=== PATIENT | female | born 1985 | race Caucasian/White ===

== ENCOUNTER 2016-08-04 13:37 | Emergency (ER) | payer OTHER ==
[2016-08-04 13:54] VITALS: TEMP 98; BMI 27.0
[2016-08-04] MEDS ORDERED: PANTOPRAZOLE SODIUM 40 MG in SODIUM CHLORIDE 100 ML IVPB ONE (15:14)
[2016-08-04] MEDS ORDERED: SODIUM CHLORIDE 0.9% 1000 ML INFUS.BAG IV ONE (15:14)
[2016-08-04] MEDS ORDERED: FAMOTIDINE 20 MG/50 ML IVPB 50 ML IVPB ONE ×2 (15:14→15:48)
[2016-08-04] MEDS ORDERED: ONDANSETRON 4 MG/2 ML VIAL IVPUSH ONE (15:14)
[2016-08-04] MEDS ORDERED: MAG HYDROX/AL HYDROX/SIMETH 30 ML UNIT-DOSE CUP PO ONE (15:15)
--- NOTE | 2016-08-04 15:33 | PDOC ---
History of Present Illness - General Chief Complaint: Pain, Acute Stated Complaint: VOMITING Time Seen by Provider: 08/04/16 14:32 - History of Present Illness Initial Comments: 08/04/16 15:17 CHIEF COMPLAINT: nausea/vomiting x 2 days HISTORY OF PRESENT ILLNESS: 31 yo F with no PMH presents to ED with nausea and vomiting since yesterday with epigastric pain accompanied by 3-4 episodes of diarrhea yesterday. Denies fever, chills, headache. No recent travel or sick contacts. PAST MEDICAL HISTORY: Denies past medical history FAMILY HISTORY: Denies SOCIAL HISTORY:Denies tobacco, alcohol, illicit drug use. SURGICAL HISTORY: Denies ALLERGIES: No known drug allergies REVIEW OF SYSTEMS General/Constitutional: Denies fever or chills. Denies weakness, weight change. HEENT: Denies change in vision. Denies ear pain or discharge. Denies sore throat. Cardiovascular: Denies chest pain or shortness of breath. Respiratory: Denies cough, wheezing, or hemoptysis. Gastrointestinal: "Like 10 episodes of vomiting since yesterday, 2-3 episodes of diarrhea." Denies rectal bleeding. Genitourinary: Denies dysuria, frequency, or change in urination. Musculoskeletal: Denies joint or muscle swelling or pain. Denies neck or back pain. PHYSICAL EXAM General Appearance: Well-appearing, appropriately dressed. No apparent distres. HEENT: EOMI, PERRLA. No conjunctival pallor. No photophobia, scleral icterus. Respiratory/Chest: Lungs CTAB. Cardiovascular: RRR. S1, S2. Gastrointestinal/Abdominal: Epigastric tenderness. No tenderness to McBurney's point. Normal bowel sounds. Abdomen soft, non-distended. No tenderness or rebound tenderness. No organomegaly, pulsatile mass, guarding, hernia, hepatomegaly, splenomegaly. Musculoskeletal/Extremities: Normal inspection. FROM of all extremities, normal capillary refill. Pelvis Stable. No CVA tenderness. No tenderness to extremities, pedal edema, swelling, erythema or deformity. Integumentary: Appropriate color, dry, warm. No cyanosis, erythema, jaundice or rash Neurologic: technician test systems II-XII intact. Fully oriented, alert. Appropriate mood/affect. Motor strength 5/5. No appreciable EOM palsy, facial droop or sensory deficit. Past History - Past Medical History Allergies/Adverse Reactions: Allergies Allergy/AdvReac Type Severity Reaction Status Date / Time No Known Allergies Allergy Verified 08/04/16 13:51 Home Medications: Ambulatory Orders Ondansetron [Zofran *Odt*] 8 mg SL TID PRN #21 od.tablet 08/04/16 Pantoprazole Sodium [Protonix] 40 mg PO DAILY #14 tablet. 08/04/16 Other medical history: DENIES. - Surgical History Appendectomy: Yes - Immunization History Immunization Up to Date: Yes - Psycho/Social/Smoking Cessation Hx Anxiety: No Suicidal Ideation: No Smoking History: Never smoked Have you smoked in the past 12 months: No Hx Alcohol Use: No Drug/Substance Use Hx: No Substance Use Type: None *Physical Exam - Vital Signs Last Vital Signs Temp Pulse Resp BP Pulse Ox 98 F 89 16 113/72 98 08/04/16 13:51 08/04/16 13:51 08/04/16 13:51 08/04/16 13:51 08/04/16 13:51 Medical Decision Making - Medical Decision Making 08/04/16 15:41 31 yo F with no PMH presents to ED with nausea and vomiting since yesterday with epigastric pain accompanied by 3-4 episodes of diarrhea yesterday. -IVF, Zofran, Protonix, Pepcid, Maalox Will reassess. *DC/Admit/Observation/Transfer Diagnosis at time of Disposition: Gastroenteritis - Discharge Dispostion Disposition: HOME Condition at time of disposition: Stable Admit: No - Prescriptions Prescriptions: Pantoprazole Sodium [Protonix] 40 mg PO DAILY #14 tablet. Ondansetron [Zofran *Odt*] 8 mg SL TID PRN #21 od.tablet PRN Reason: Nausea And/Or Vomiting - Referrals Referrals: Tammy Rae MD [Primary Care Provider] - - Patient Instructions Printed Discharge Instructions: DI for Vomiting -- Adult, DI for Viral Gastroenteritis -- Adult, DI for Diarrhea and Traveler's Diarrhea -- Adult Additional Instructions: As discussed, please take your medications as prescribed and follow up with Dr. Rae this week. If you experience any change in your abdominal pain, increased vomiting or diarrhea, fever, chills, or any new or worsening symptoms, please return to the ER.
[2016-08-04] MEDS ORDERED: PANTOPRAZOLE SODIUM 100 ML IVPB ONE (15:47)
[2016-08-04] MEDS ORDERED: MAG HYDROX/AL HYDROX/SIMETH 30 ML UNIT-DOSE CUP ONE (15:47)
[2016-08-04] MEDS ORDERED: ONDANSETRON 4 MG/2 ML VIAL ONE (15:48)
[2016-08-04 17:05] VITALS: BP 110/70; PULSE 70
== END 2016-08-04 17:04 | disposition home or self-care (01) ==
LOC: JER 13:37
PROC: 3E033GC Introduction of Other Therapeutic Substance into Peripheral Vein, Percutaneous Approach (ICD-10-PCS; principal; 2016-08-04)
PROC: 3E033GC Introduction of Other Therapeutic Substance into Peripheral Vein, Percutaneous Approach (ICD-10-PCS; 2016-08-04)
PROC: 3E033GC Introduction of Other Therapeutic Substance into Peripheral Vein, Percutaneous Approach (ICD-10-PCS; 2016-08-04)
DX: K52.9 Noninfective gastroenteritis and colitis, unspecified (principal)
CPT/HCPCS: 96365; 96368; 96375; 99283-25

== ENCOUNTER 2016-08-20 10:38 | Emergency (ER) | payer OTHER ==
[2016-08-20 10:42] VITALS: BMI 27.8
--- NOTE | 2016-08-20 12:41 | PDOC ---
History of Present Illness - General History Source: Patient Exam Limitations: No Limitations - History of Present Illness Initial Comments: 08/20/16 12:41 The patient is a 31-year-old woman with no past medical history who presents to the emergency department via walk-in for further evaluation of abdominal pain since yesterday. No trauma. No strenuous activity. She states that she experiences sharp mid-epigastric abdominal pain that radiates to her left upper quadrant, constant in nature with a rated 8/10 in severity since yesterday. She notes associated symptoms of nausea and loose watery stools (reportedly 8-10 episodes per day/ no diarrhea today). No vomiting, blood per rectum. She admits she was experiencing similar symptoms approximately 2-3 weeks ago, barre her trip to [place]. She was evaluated by her PMD, Dr. Tammy Rae. She has a follow- up appointment with a property insurance agent on 09/04/2016. She is currently on her menses. No other complaints. She denies fever, chills, diaphoresis, generalized weakness. She denies chest pain, shortness of breath, cough She denies vomiting, dysuria, hematuria, urinary frequency and urgency, flank pain, vaginal discharge/vaginal bleeding Allergies: No Known Drug Allergies Past Surgical History: Appendectomy Social History: No tobacco, EtOH and recreational drug use Primary Care Physician: Dr. Tammy Rae. <Cecilia Lux - Last Filed: 08/20/16 16:52> - General History Source: Patient Exam Limitations: No Limitations <Princess Zabala - Last Filed: 08/21/16 08:39> - General Chief Complaint: Pain Stated Complaint: ABD PAIN Time Seen by Provider: 08/20/16 12:24 Past History <Cecilia Lux - Last Filed: 08/20/16 16:52> - Surgical History Appendectomy: Yes - Immunization History Immunization Up to Date: Yes - Psycho/Social/Smoking Cessation Hx Anxiety: No Suicidal Ideation: No Smoking History: Never smoked Have you smoked in the past 12 months: No Hx Alcohol Use: No Drug/Substance Use Hx: No Substance Use Type: None <Princess Zabala - Last Filed: 08/21/16 08:39> - Past Medical History Allergies/Adverse Reactions: Allergies Allergy/AdvReac Type Severity Reaction Status Date / Time No Known Allergies Allergy Verified 08/20/16 10:42 Home Medications: Ambulatory Orders Dicyclomine HCl [Bentyl -] 10 mg PO TID PRN #28 capsule 08/20/16 Ranitidine HCl [Zantac] 150 mg PO DAILY 30 Days 08/20/16 Ranitidine [Zantac -] 150 mg PO DAILY #30 tablet 08/20/16 Nitrofurantoin Monohyd/M-Cryst [Macrobid -] 100 mg PO BID #14 capsule 08/21/16 Review of Systems - Review of Systems Able to Perform ROS?: Yes Comments:: 08/20/16 12:42 GENERAL/CONSTITUTIONAL: No: fever, chills, weakness, loss of appetite. HEAD, EYES, EARS, NOSE AND THROAT: No: change in vision, ear pain, discharge, sore throat, throat swelling. CARDIOVASCULAR: No: chest pain, lightheadedness, palpitations, syncope RESPIRATORY: No: cough, shortness of breath, wheezing, hemoptysis, stridor. GASTROINTESTINAL: Yes: Abdominal Pain. Nausea. Diarrhea. No: vomiting, abdominal cramping, rectal bleeding, constipation. GENITOURINARY: No: dysuria, hematuria, frequency, urgency, flank pain. MUSCULOSKELET AL: No: back pain, neck pain, joint pain, muscle swelling or pain SKIN AND BREASTS: No: lesions, pallor, rash or easy bruising. NEUROLOGIC: No: headache, vertigo, paresthesias, weakness ENDOCRINE: No: unexplained weight gain or loss HEMATOLOGIC/LYMPHATIC: No: anemia, easy bleeding, swelling nodes <Cecilia Lux - Last Filed: 08/20/16 16:52> *Physical Exam - Vital Signs Last Vital Signs Temp Pulse Resp BP Pulse Ox 98.0 F 80 20 123/78 100 08/20/16 10:39 08/20/16 10:39 08/20/16 10:39 08/20/16 10:39 08/20/16 10:39 - Physical Exam Comments: 08/20/16 12:42 GENERAL: Awake. Alert. The patient is in no acute distress. HEAD: Normal with no signs of trauma. EYES: PERRLA, EOMI, sclera anicteric, conjunctiva clear. ENT: Ears normal, nares patent, oropharynx clear without exudates. Moist mucous membranes. NECK: Normal range of motion, supple without lymphadenopathy, JVD, or masses. LUNGS: Breath sounds equal, clear to auscultation bilaterally. No wheezes, and no crackles. HEART:Regular rate and rhythm, normal S1 and S2 without murmur, rub or gallop. ABDOMEN: Soft, there is some left upper quadrant tenderness to palpation. Normoactive bowel sounds. No guarding, no rebound. EXTREMITIES: Normal range of motion, no edema. No clubbing or cyanosis. No erythema, or tenderness. NEUROLOGICAL: Cranial nerves II through XII grossly intact. Normal speech. No focal neurological deficits. MUSCULOSKELETAL: Back non-tender to palpation, no CVA tenderness SKIN: Warm, Dry, normal turgor, no rashes or lesions noted. <Cecilia Lux - Last Filed: 08/20/16 16:52> - Vital Signs Last Vital Signs Temp Pulse Resp BP Pulse Ox 98.0 F 80 20 123/78 100 08/20/16 10:39 08/20/16 10:39 08/20/16 10:39 08/20/16 10:39 08/20/16 10:39 <Princess Zabala - Last Filed: 08/21/16 08:39> ED Treatment Course - LABORATORY CBC & Chemistry Diagram: 08/20/16 13:30 08/20/16 13:30 - RADIOLOGY Radiograph Interpretation: 08/20/16 16:52 EXAM: CT/ABDOMEN PELVIS CT WITH CONTR HISTORY PROVIDED Interpreted by Dr. Jamari Blank IMPRESSION: Sequential axial images were obtained from the domes of the diaphragms through the symphysis pubis following the administration of both oral and intravenous contrast material. The lung bases are clear. The liver, spleen, pancreas, adrenal glands and kidneys demonstrate no significant abnormalities. The gallbladder is clear. There is no evidence of pneumoperitoneum, bowel obstruction or intra-abdominal abscess. There is no CT evidence of acute appendicitis, colitis or diverticulitis. There are prominent mesenteric lymph nodes within the right and left mid to lower quadrants. The possibility of mesenteric adenitis cannot be excluded. Clinical correlation is advised. Examination of the pelvis demonstrates no evidence of pelvic masses, fluid collections or lymphadenopathy. There is no evidence of acute bony abnormalities. <Cecilia Lux - Last Filed: 08/20/16 16:52> - LABORATORY CBC & Chemistry Diagram: 08/20/16 13:30 08/20/16 13:30 <Princess Zabala - Last Filed: 08/21/16 08:39> Medical Decision Making - Medical Decision Making 08/20/16 12:40 A portion of this note was documented by scribe services under my direction. I have reviewed the details of the note, within reason, and agree with the documentation with the following case summary and management plan written by me. Nursing documentation reviewed and incorporated into medical decision making 08/20/16 16:58 THis is a 31 yo F presenting to the ER with 2 weeks of diarrhea and now abdominal pain No fevers or chills Notes abdominal pain, particularly with eating Pt recently travelled but had these symptoms PRIOR to travelling On examination Epigastric tenderness and LLQ tenderness to palpation Will do Labs IVF CT Will re assess CT demonstrates NO appendicitis or diverticulitis Mesenteric adenitis Will discharge to home Follow up with PMD 08/20/16 17:07 Laboratory Tests 08/20/16 08/20/16 08/20/16 13:30 13:30 13:30 WBC 9.0 Hgb 12.9 Hct 38.6 Plt Count 337 Neutrophils % 61.5 Lymphocytes % 29.8 Sodium 142 Potassium 3.8 Chloride 104 Carbon Dioxide 25 Anion Gap 13 BUN 10 Creatinine 0.6 Random Glucose 74 D Total Amylase 71 Lipase 270 Serum , Qual Negative Urine Blood 3+ H Urine Nitrite Positive Ur Leukocyte Esterase 1+ H clinical impression: diarrhea, mesenteric adenitis possible UTI, micro unavailable) <Princess Zabala - Last Filed: 08/21/16 08:39> *DC/Admit/Observation/Transfer - Attestations Scribe Attestion: 08/20/16 12:42 Documentation prepared by Cecilia Lux, acting as medical billing manager for Princess Zabala MD. <Cecilia Lux - Last Filed: 08/20/16 16:52> - Discharge Dispostion Admit: No <Princess Zabala - Last Filed: 08/21/16 08:39> Diagnosis at time of Disposition: Mesenteric adenitis - Discharge Dispostion Disposition: HOME Condition at time of disposition: Stable - Prescriptions Prescriptions: Dicyclomine HCl [Bentyl -] 10 mg PO TID PRN #28 capsule PRN Reason: abdominal pain Nitrofurantoin Monohyd/M-Cryst [Macrobid -] 100 mg PO BID #14 capsule Ranitidine HCl [Zantac] 150 mg PO DAILY 30 Days Ranitidine [Zantac -] 150 mg PO DAILY #30 tablet - Referrals Referrals: Tammy Rae MD [Primary Care Provider] - - Patient Instructions Printed Discharge Instructions: DI for Mesenteric Adenitis-Adult, Diarrhea Additional Instructions: Thank you for coming in to the ER Please take medications as prescribed Please follow up with your Primary Care Physician Please return to the ER for any other concerns or complaints Please review all results - Post Discharge Activity Work/School Note: Back to Work
[2016-08-20] MEDS ORDERED: PANTOPRAZOLE SODIUM 40 MG in SODIUM CHLORIDE 100 ML IVPB ONE (12:43)
[2016-08-20] MEDS ORDERED: DICYCLOMINE HCL 10 MG CAPSULE PO ONE (13:00)
[2016-08-20] MEDS ORDERED: DICYCLOMINE HCL 10 MG CAPSULE ONE (13:32)
[2016-08-20] MEDS ORDERED: PANTOPRAZOLE SODIUM 100 ML IVPB ONE (13:32)
[2016-08-20 13:46] LABS: BASOPHIL 0.4 % (0-2.0); EOSINOPHIL 2.4 % (0-4.5); MCH 29.9 pg (25.7-33.7); MCHC 33.5 g/dl (32.0-36.0); MEAN CELL VOLUME 89.3 fl (80-96); NEUTROPHILS 61.5 % (42.8-82.8); PLATELET COUNT 337 K/MM3 (134-434); RDW 13.1 % (11.6-15.6)
[2016-08-20 14:02] LABS: ALBUMIN 4.1 g/dl (3.4-5.0); AMYLASE 71 U/L (25-115); ANION GAP 13 (8-16); BILIRUBIN,TOTAL 0.2 mg/dL (0.2-1.0); CALCIUM 8.5 mg/dL (8.5-10.1); CO2 25 mmol/L (21-32); CREATININE 0.6 mg/dL (0.55-1.02); GLUCOSE,RANDOM 74 mg/dL (74-106); SGOT/AST 29 U/L (15-37); SGPT/ALT 44 U/L (12-78); TOT PROT 8.2 g/dl (6.4-8.2)
[2016-08-20 14:03] LABS: ALK PHOS 108 U/L (45-117)
[2016-08-20 15:17] LABS: URINE APPEARANCE CLEAR; URINE BILIRUBIN NEGATIVE (NEGATIVE); URINE COLOR LTYELLOW; URINE GLUCOSE (UA) NEGATIVE (NEGATIVE)
[2016-08-20 15:18] LABS: URINE BLOOD 3+ (NEGATIVE); URINE KETONE NEGATIVE (NEGATIVE); URINE LEUK ESTERASE 1+ (NEGATIVE); URINE NITRITE POSITIVE (NEGATIVE); URINE PROTEIN NEGATIVE (NEGATIVE); URINE UROBILINOGEN NORMAL E.U./dl (0.2-1.0)
[2016-08-20 15:22] LABS: URINE MUCUS RARE; URINE RBC 17/HPF /hpf (0-3); URINE WBC 16/HPF /hpf (3-5)
[2016-08-20 18:21] VITALS: BP 126/75; PULSE 79; TEMP 98
== END 2016-08-20 18:21 | disposition home or self-care (01) ==
LOC: JER 10:38
PROC: 3E033GC Introduction of Other Therapeutic Substance into Peripheral Vein, Percutaneous Approach (ICD-10-PCS; principal; 2016-08-20)
DX: I88.0 Nonspecific mesenteric lymphadenitis (principal)
CPT/HCPCS: 36415; 74177-TC; 80053; 81003; 81015; 82150; 83690; 84703; 85025; 87086; 87186; 96365; 99283-25; Q9967

== ENCOUNTER 2017-06-11 01:23 | Emergency (ER) | payer OTHER ==
--- NOTE | 2017-06-11 01:47 | PDOC ---
History of Present Illness - General Chief Complaint: Vaginal Bleeding Stated Complaint: VAGINAL DISCHARGE/9 WKS PREG Time Seen by Provider: 06/11/17 01:42 History Source: Patient - History of Present Illness Initial Comments: 06/11/17 02:27 32 year old [id number] with vaginal spotting since last night.denies NVD, abdominal pain, fever/ chills. LMP 03/2018 Past History - Past Medical History Allergies/Adverse Reactions: Allergies Allergy/AdvReac Type Severity Reaction Status Date / Time No Known Allergies Allergy Verified 08/20/16 10:42 Home Medications: Ambulatory Orders Vit 93/Iron Fum/Folic [ Formula Tablet] 1 each PO DAILY - Surgical History Appendectomy: Yes - Immunization History Immunization Up to Date: Yes - Suicide/Smoking/Psychosocial Hx Smoking History: Never smoked Have you smoked in the past 12 months: No Hx Alcohol Use: No Drug/Substance Use Hx: No Substance Use Type: None Review of Systems - Review of Systems Able to Perform ROS?: Yes ED Treatment Course - LABORATORY CBC & Chemistry Diagram: 06/11/17 01:54 - RADIOLOGY Radiology Studies Ordered: Category Date Time Status TRANSVAGINAL US PREG [US] Stat Ultrasound 06/11/17 01:45 Ordered Radiograph Interpretation: 06/11/17 03:11 uterus is retroverted. there is sungle live IUP with estimated gestational age of 8 weeks and 20 days. there is small FHT 165bpm 06/11/17 03:16 Progress Note - Progress Note Progress Note: vaginal spotting in CBC beta HCG UA *DC/Admit/Observation/Transfer Diagnosis at time of Disposition: Vaginal bleeding affecting early - Discharge Dispostion Disposition: HOME - Referrals Referrals: Tammy Rae MD [Primary Care Provider] - - Patient Instructions Printed Discharge Instructions: DI for Vaginal Bleeding Additional Instructions: return to the ER if soaking 2 pads per hour, abdominal pain, and fever follow up with your doctor as soon as possible. - Post Discharge Activity
[2017-06-11 02:09] LABS: BASO % 0.3 % (0-2.0); EOS % 1.6 % (0-4.5); HEMATOCRIT 35.3 % (32.4-45.2); LYMPH % 29.4 % (8-40); MCH 30.3 pg (25.7-33.7); MEAN CELL VOLUME 89.1 fl (80-96); MEAN PLT VOLUME 7.5 fl (7.5-11.1); MONO % 6.2 % (3.8-10.2); NEUT % 62.5 % (42.8-82.8); PLATELET COUNT 344 K/MM3 (134-434); RBC 3.96 M/mm3 (3.60-5.2); WHITE BLOOD COUNT 14.3 K/mm3 (4.0-10.0)
[2017-06-11 02:11] VITALS: BP 124/85; PULSE 102; TEMP 98.4; BMI 27.8
[2017-06-11 02:17] LABS: URINE APPEARANCE SLCLOUDY; URINE BILIRUBIN NEGATIVE (NEGATIVE); URINE BLOOD 2+ (NEGATIVE); URINE COLOR YELLOW; URINE GLUCOSE (UA) NEGATIVE (NEGATIVE); URINE KETONE NEGATIVE (NEGATIVE); URINE LEUK ESTERASE NEGATIVE (NEGATIVE); URINE NITRITE NEGATIVE (NEGATIVE); URINE PROTEIN NEGATIVE (NEGATIVE); URINE UROBILINOGEN NEGATIVE mg/dL (0.2-1.0)
[2017-06-11 02:18] LABS: INR 0.88 (0.82-1.09); PROTHROMBIN TIME (PATIENT) 9.9 SEC (9.98-11.88)
[2017-06-11 02:20] LABS: EPI CELLS RARE /HPF (FEW); URINE HYALINE CAST 1 /lpf; URINE MUCUS RARE
== END 2017-06-11 03:22 | disposition home or self-care (01) ==
LOC: JER 01:23
DX: O20.9 Hemorrhage in early pregnancy, unspecified (principal); Z3A.08 8 weeks gestation of pregnancy
CPT/HCPCS: 36415; 76817-TC; 81003; 81015; 84702; 85025; 85610; 86850; 86900; 86901; 99282-25

== ENCOUNTER 2021-03-14 11:01 | Emergency (ER) | payer OTHER ==
[2021-03-14 11:14] VITALS: BP 109/71; PULSE 90; TEMP 98.5; BMI 29.0
[2021-03-14 12:36] LABS: EPI CELLS 20 /uL (0-25.1); HYALINE CASTS 2 /uL (0-3.1); URINE APPEARANCE CLOUDY; URINE BACTERIA 197 /uL (0-1359); URINE BILIRUBIN NEGATIVE (NEGATIVE); URINE COLOR YELLOW; URINE GLUCOSE (UA) NEGATIVE (NEGATIVE); URINE KETONE TRACE (NEGATIVE); URINE LEUK ESTERASE TRACE (NEGATIVE); URINE NITRITE NEGATIVE (NEGATIVE); URINE PROTEIN NEGATIVE (NEGATIVE); URINE RBC 8 /uL (0-23.9); URINE WBC 8 /uL (0-25.8)
== END 2021-03-14 17:10 | disposition home or self-care (01) ==
LOC: JERFT 11:01 → JER 11:01 → JERFT 17:10
DX: O26.891 Other specified pregnancy related conditions, first trimester (principal); B37.3 Candidiasis of vulva and vagina; Z3A.01 Less than 8 weeks gestation of pregnancy
CPT/HCPCS: 36415; 76817-TC; 81003; 84702; 87070; 87077; 87086; 87205; 87491; 87591; 99284-25